=== PATIENT | male | born 1995 ===

== ENCOUNTER 2021-01-29 03:32 | Emergency (ER) | payer OTHER ==
[~2021-01-29] VITALS: Ht 182.9 cm; Wt 63.0 kg
[2021-01-29 03:38] VITALS: BP 122/74
--- NOTE | 2021-01-29 03:50 | NUR ---
pt refusing tdap and labs states that i cannot have any needles. im a taoism and it is against my shinto. erp aware
[2021-01-29] MEDS ORDERED: DIPH,PERTUSS(ACELL),TET VAC/PF 0.5 ML IM-VACC ONE (04:00)
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
== END 2021-01-29 04:20 | disposition left against medical advice (07) ==
LOC: ED 03:45
DX: S80.12XA Contusion of left lower leg, initial encounter (principal); S00.83XA Contusion of other part of head, initial encounter; S09.90XA Unspecified injury of head, initial encounter; Y04.0XXA Assault by unarmed brawl or fight, initial encounter; Y93.89 Activity, other specified; Y92.89 Other specified places as the place of occurrence of the external cause; Y99.8 Other external cause status
CPT/HCPCS: 99283